=== PATIENT | male | born 1975 | race Caucasian/White ===

== ENCOUNTER 2016-10-17 14:53 | Emergency (ER) | payer SELFPAY | END 2016-10-17 15:40 | disposition home or self-care (01) | LOC: CED 14:53 → CFTX 14:53 | DX: S29.012A Strain of muscle and tendon of back wall of thorax, initial encounter (principal); F17.210 Nicotine dependence, cigarettes, uncomplicated; X50.9XXA Other and unspecified overexertion or strenuous movements or postures, initial encounter; Y92.830 Public park as the place of occurrence of the external cause | CPT/HCPCS: 96372; 99283; J1885; J2360 ==

== ENCOUNTER 2017-01-31 22:56 | Emergency (ER) | payer BC ==
[~2017-01-31] VITALS: Ht 172.7 cm; Wt 72.6 kg
--- NOTE | ~2017-01-31 | CT2 ---
[facility] A Service of [facility] RADIOLOGY TEXT RESULTS PATIENT: CHRISTINE RIOS JR LOCATION: [facility] : 75 UNIT #: [id number] AGE: [address]: Greg Lerma DO SEX: M ORDER DR: [id number] [facility] [address] [place], [place] [address] [id number] E MR#: [id number] Acc #: [id number] NAME: CHRISTINE RISO JR : 1975 SEX: M STUDY DATE/TIME: 02/01/2017 03:39 UNIT: [facility] ROOM: STUDY DESCRIPTION: CT Abd and Pelv W Cont Attending Physician: Greg Lerma D.O. Ordering Physician: Greg Lerma D.O. Primary Care Physician: No Primary Care Physician MEDICAL IMAGING REPORT This report is preliminary unless electronic signature is present EXAM CT abdomen and pelvis, 02/01 at 03:39. INDICATIONS Lower abdominal pain for 2 days with diarrhea. TECHNIQUE Axial images were obtained through abdomen and pelvis following IV contrast administration. Multiplanar reformats were obtained. This CT exam was performed with one or more of the following radiation dose reduction techniques: Automatic exposure control, adjustment of mA and/or kV according to patient size, and iterative reconstruction. COMPARISON No comparison. FINDINGS Abdomen: Lung bases are clear. Gallbladder unremarkable. No biliary obstruction. Solid organs are normal. There is no adenopathy or free fluid. GI tract is normal. Pelvis: The appendix is large but gas-filled. This is felt to be normal. The remainder of the unopacified GI tract is normal as well. Urinary bladder is normal. No free fluid is seen. IMPRESSION Negative CT of the abdomen and pelvis. The GI tract including the appendix is normal. Dictated by... Eyad Anaya Jr., MGabe. THIS IS AN ELECTRONICALLY VERIFIED REPORT [facility] A Service [facility] RADIOLOGY TEXT RESULTS PATIENT: CHRISTINE RIOS JR LOCATION: [facility] : 75 UNIT #: [id number] AGE: [address]: Greg Lerma DO SEX: M ORDER DR: Eyad Anaya Jr., M.D. at 02/04/2017 7:13 AM SADAF/flor TD: 02/01/2017 10:02 JOB #: [id number] MEDICAL IMAGING REPORT Page 1 of 1 COPY
[2017-02-01 02:38] LABS: URINE SOURCE CLEAN CATCH
[2017-02-01 02:41] LABS: BASOPHIL% 0.4 % (0-2.5); EOSINOPHIL# 0.5 X10e3 (0-0.7); EOSINOPHIL% 4.2 % (0.0-7.0); HEMATOCRIT 40.5 % (38.0-50.0); LYMPHOCYTE# 4.6 X10e3 (1.0-3.5); LYMPHOCYTE% 41.7 % (17.0-45.0); MEAN CELL VOLUME 95.5 FL (83-96); MEAN CORPUSCULAR HGB CONC 34.5 g/dL (30-36); MEAN PLATELET VOLUME 7.8 FL (6.5-11.5); MONOCYTE# 0.9 X10e3 (0-1.0); NEUTROPHIL% 45.7 % (40-75); PLATELET COUNT 286 X10e3 (140-420); RED BLOOD COUNT 4.24 X10e (3.90-5.60); RED CELL DISTRIBUTION WIDTH 13.3 % (11.0-15.5)
[2017-02-01 02:43] LABS: URINE APPEARANCE CLEAR; URINE BLOOD NEG (NEG); URINE COLOR DK YELLOW; URINE GLUCOSE NEG (NEG); URINE KETONE TRACE (NEG); URINE LEUKOCYTE ESTERASE NEG (NEG); URINE NITRATE NEG (NEG); URINE PROTEIN TRACE (NEG); URINE SPECIFIC GRAVITY 1.032 (1.003-1.035)
[2017-02-01 02:45] LABS: DIFF IND NO
[2017-02-01 02:46] LABS: CULTURE INDICATED? NO; URINE BILIRUBIN POS (NEG)
[2017-02-01 03:07] LABS: ALBUMIN SERUM 4.2 g/dL (3.5-5.0); BILIRUBIN, DIRECT 0.1 mg/dL (0.0-0.2); BILIRUBIN,INDIRECT 0.4 mg/dL (0.0-0.9); BILIRUBIN,TOTAL 0.5 mg/dL (0.2-2.0); CALCIUM SERUM 9.1 mg/dL (8.4-10.2); CREATININE SERUM 1.1 mg/dL (0.6-1.4); PROTEIN TOTAL SERUM 7.6 g/dL (6.0-8.3)
== END 2017-02-01 04:50 | disposition home or self-care (01) ==
LOC: CED 22:56
DX: R10.9 Unspecified abdominal pain (principal); R19.7 Diarrhea, unspecified; F17.200 Nicotine dependence, unspecified, uncomplicated
CPT/HCPCS: 36415; 74177; 80048; 80076; 81003; 83690; 85025; 96361; 96374; 96375; 99284; J2270; J2405; Q9967